=== PATIENT | male | born 1955 | race Hispanic/Latino ===

== ENCOUNTER 2021-12-30 16:15 | Outpatient (CLI) | payer BC | END 2021-12-30 16:16 | disposition home or self-care (01) | LOC: CT 16:15 | PROVIDERS: ATTEND Internal Medicine | DX: R51.9 Headache, unspecified (principal) | CPT/HCPCS: 70470; 82565 ==

== ENCOUNTER 2022-04-19 09:24 | Day surgery (SDC) | payer BC ==
[2022-04-19 10:06] LABS: #Lymphocytes 0.8 thou/uL (1.20-3.40); #Monocytes 0.7 thou/uL (0.11-0.59); #Neutrophils 4.9 thou/uL (1.40-6.50); %Basophils 0.2 % (0.0-1.0); %Eosinophils 0.4 % (0.0-10.0); %Lymphocytes 12.3 % (21.0-51.0); %Monocytes 11.2 % (0.0-10.0); Hemoglobin 15.8 g/dL (14.0-18.0); Mean Corpuscular HGB CONC 33.2 g/dL (32.0-36.0); Mean Corpuscular Hemoglobin 31.7 pg (27.0-31.0); Mean Corpuscular Volume 95.5 fL (78.0-98.0); Mean Platelet Volume 7.7 fL (7.4-10.4); Platelet Count 284 thou/uL (130-400); RBC Distribution Width 13.1 % (11.5-14.5); Red Blood Cell (RBC) Count 4.98 mill/uL (4.70-6.10); White Blood Cell (WBC) Count 6.4 thou/uL (4.8-10.8)
[2022-04-19 10:23] LABS: ALT (SGPT) 18 U/L (8-55); AST (SGOT) 15 U/L (5-34); Albumin 4.2 g/dL (3.4-4.8); Alkaline Phosphatase 88 U/L (40-110); Anion Gap 15 mmol/L (10-20); BUN (Urea Nitrogen) 15 mg/dL (8.4-25.7); Bilirubin, Total 1.1 mg/dL (0.2-1.2); Calc. Creatinine Clearance 0 mL/min (70-130); Calcium 9.1 mg/dL (7.8-10.44); Carbon Dioxide 18 mmol/L (23-31); Chloride 101 mmol/L (98-107); Estimated GFR 57; Globulin 3.5 g/dL (2.4-3.5); Glucose 146 mg/dL (80-115); Lipase 39 U/L (8-78); Magnesium 1.8 mg/dL (1.6-2.6); Potassium 3.8 mmol/L (3.5-5.1); Protein, Total 7.7 g/dL (5.8-8.1); Sodium 130 mmol/L (136-145)
[2022-04-19] MEDS ORDERED: Ondansetron PF 4 MG/2 ML Vial ONE ×2 (11:21→17:49)
[2022-04-19] MEDS ORDERED: Piperacillin/Tazobactam 4.5 GM VIAL ONE (12:18)
[2022-04-19 13:35] LABS: SARS-CoV-2 NAA Rapid Test Not Detected (NotDetected)
[2022-04-19] MEDS ORDERED: fentaNYL Citrate/PF 100 MCG/2 ML SYRINGE ONE (17:24)
[2022-04-19] MEDS ORDERED: PROPOFOL 200 MG/20 ML VIAL ONE (17:49)
[2022-04-19] MEDS ORDERED: Lidocaine 1% PF 5 ML VIAL ONE (17:49)
[2022-04-19] MEDS ORDERED: Glycopyrrolate 0.2 MG/ML 5 ML SYRINGE ONE (17:49)
[2022-04-19] MEDS ORDERED: Dexamethasone 20 MG/5 ML VIAL ONE (17:49)
[2022-04-19] MEDS ORDERED: Phenylephrine 10 MG/ML VIAL ONE (17:49)
[2022-04-19] MEDS ORDERED: Rocuronium Bromide 10 MG/ML (10ML VIAL) ONE (17:49)
[2022-04-19] MEDS ORDERED: SUGAMMADEX SODIUM 200 MG/2 ML VIAL ONE (18:41)
[2022-04-19] MEDS ORDERED: Fentanyl 100 MCG/2 ML VIAL ONE (19:00)
[2022-04-19] MEDS ORDERED: Ketorolac Tromethamine 30 MG/ML VIAL IVP PRN (19:05)
[2022-04-19] MEDS ORDERED: Promethazine HCl 25 MG/ML VIAL IVPB PRN (19:05)
[2022-04-19] MEDS ORDERED: HYDROmorphone 2 MG/ML VIAL SLOW IVP PRN (19:05)
[2022-04-19] MEDS ORDERED: Ondansetron HCl/PF 4 MG/2 ML Vial IVP PRN (19:05)
[2022-04-19] MEDS ORDERED: Promethazine HCl 25 MG/ML VIAL IM PRN (19:05)
[2022-04-19] MEDS ORDERED: Ketorolac Tromethamine 30 MG/ML VIAL ONE (19:08)
[2022-04-19] MEDS ORDERED: HYDROcodone/Acetaminophen 5/325 mg Tablet ONE (19:30)
== END 2022-04-19 20:00 | disposition home or self-care (01) ==
LOC: ERS 09:24 → SDC/OP 15:49
PROVIDERS: ATTEND Surgery
PROC: 0DTJ4ZZ Resection of Appendix, Percutaneous Endoscopic Approach (ICD-10-PCS; principal; 2022-04-19)
DX: K35.80 Unspecified acute appendicitis (principal); K38.8 Other specified diseases of appendix; K52.9 Noninfective gastroenteritis and colitis, unspecified; I10 Essential (primary) hypertension; E78.5 Hyperlipidemia, unspecified; M10.9 Gout, unspecified; Z79.899 Other long term (current) drug therapy; Z20.822 Contact with and (suspected) exposure to COVID-19
CPT/HCPCS: 36415; 74176; 80053; 83690; 83735; 85025; 88304; 93005; 93010; 96361; 96365; 96375; A4649; J1100; J1885; J2370; J2405; J2543; J2704; J2710; J3010; U0002

== ENCOUNTER 2022-04-27 07:33 | Outpatient (CLI) | payer BC ==
[2022-04-27] MEDS ORDERED: Magnevist 469MG/ML 20 ML VIAL ONE (09:24)
== END 2022-04-27 07:34 | disposition home or self-care (01) ==
LOC: MRI 07:33
PROVIDERS: ATTEND Psychiatry & Neurology Neurology
DX: R47.1 Dysarthria and anarthria (principal); G93.9 Disorder of brain, unspecified
CPT/HCPCS: 70553; A9579

== ENCOUNTER 2022-07-12 09:01 | Emergency (ER) | payer BC ==
[2022-07-12] MEDS ORDERED: Fentanyl 100 MCG/2 ML VIAL ONE (10:19)
[2022-07-12] MEDS ORDERED: Orphenadrine Citrate 60 MG/2 ML VIAL ONE (11:09)
[2022-07-12] MEDS ORDERED: Boostrix 0.5 ML (Tdap) VIAL (>/=7 yrs of age) ONE (11:32)
== END 2022-07-12 12:29 | disposition home or self-care (01) ==
LOC: ERS 09:01
DX: S39.012A Strain of muscle, fascia and tendon of lower back, initial encounter (principal); S60.311A Abrasion of right thumb, initial encounter; S70.311A Abrasion, right thigh, initial encounter; I10 Essential (primary) hypertension; E78.5 Hyperlipidemia, unspecified; Z79.899 Other long term (current) drug therapy; W17.89XA Other fall from one level to another, initial encounter
CPT/HCPCS: 70450; 71045; 72125; 72128; 72131; 72170; 90471; 90715; 93005; 96372; 96374; J2360; J3010

== ENCOUNTER 2023-04-08 12:09 | Outpatient (CLI) | payer MEDICARE, BC | END 2023-04-08 12:10 | disposition home or self-care (01) | LOC: RAD 12:09 | PROVIDERS: ATTEND Internal Medicine | DX: M54.6 Pain in thoracic spine (principal); M47.816 Spondylosis without myelopathy or radiculopathy, lumbar region; M47.817 Spondylosis without myelopathy or radiculopathy, lumbosacral region | CPT/HCPCS: 72072; 72100 ==

== ENCOUNTER 2023-04-08 13:11 | Emergency (ER) | payer MEDICARE, BC ==
[2023-04-08 14:23] LABS: #Basophils 0.1 thou/uL (0.0-0.2); #Eosinphils 0.2 thou/uL (0.0-0.7); #Monocytes 0.6 thou/uL (0.11-0.59); #Neutrophils 5.6 thou/uL (1.40-6.50); %Basophils 0.7 % (0.0-1.0); %Eosinophils 2.4 % (0.0-10.0); %Lymphocytes 14.7 % (21.0-51.0); %Monocytes 7.6 % (0.0-10.0); %Neutrophils 74.2 % (42.0-75.0); Hemoglobin 13.9 g/dL (14.0-18.0); Mean Corpuscular HGB CONC 34.8 g/dL (32.0-36.0); Mean Corpuscular Hemoglobin 31.4 pg (27.0-31.0); Mean Corpuscular Volume 90.1 fl (78.0-98.0); Mean Platelet Volume 10.6 fL (7.4-10.4); Platelet Count 230 10x3/uL (130-400); RBC Distribution Width 13.9 % (11.5-14.5); Red Blood Cell (RBC) Count 4.43 mill/uL (4.70-6.10); White Blood Cell (WBC) Count 7.5 10x3/uL (4.8-10.8)
[2023-04-08 14:47] LABS: Anion Gap 15 mmol/L (10-20); BUN (Urea Nitrogen) 21 mg/dL (8.4-25.7); Calc. Creatinine Clearance 0 mL/min (70-130); Carbon Dioxide 21 mmol/L (23-31); Chloride 105 mmol/L (98-107); Potassium 4.3 mmol/L (3.5-5.1); Sodium 137 mmol/L (136-145)
[2023-04-08 14:48] LABS: ALT (SGPT) 25 U/L (8-55); AST (SGOT) 18 U/L (5-34); Albumin 4.4 g/dL (3.4-4.8); Alkaline Phosphatase 82 U/L (40-110); Bilirubin, Total 0.8 mg/dL (0.2-1.2); Calcium 8.7 mg/dL (7.8-10.44); Estimated GFR 58; Globulin 2.9 g/dL (2.4-3.5); Glucose 122 mg/dL (80-115); Protein, Total 7.3 g/dL (5.8-8.1)
[2023-04-08 16:30] LABS: Bacteria/HPF None Seen HPF (None Seen); Bilirubin Negative (Negative); Blood, Urine Negative (Negative); CAUTI Indications for Culture Alt mental st,lethar; Clarity Clear (Clear); Glucose, Urine (Dipstick) Normal (Negative); Ketone, Urine Negative (Negative); Leukocyte Negative Leu/uL (Negative); Nitrite Negative (Negative); Protein, Urine (Dipstick) 10 mg/dL (Neg-Trace); RBC/HPF 0-3 HPF (0-3); Squamous Epithelial None Seen HPF (0-3); Urobilinogen Normal mg/dL (Less than 2); WBC/HPF 0-3 HPF (0-3)
[2023-04-08 16:33] LABS: Urine Culture Reflex No No
== END 2023-04-08 16:44 | disposition home or self-care (01) ==
LOC: ERS 13:11
DX: M54.6 Pain in thoracic spine (principal); E78.5 Hyperlipidemia, unspecified; I10 Essential (primary) hypertension; Z79.899 Other long term (current) drug therapy
CPT/HCPCS: 36415; 71045; 72072; 72100; 80053; 81001; 83605; 83690; 83880; 84484; 85025; 93005; 94760; 96360; 96361

== ENCOUNTER 2023-04-22 12:53 | Outpatient (CLI) | payer MEDICARE, BC | END 2023-04-22 12:54 | disposition home or self-care (01) | LOC: MRI 12:53 | PROVIDERS: ATTEND Internal Medicine | DX: M51.16 Intervertebral disc disorders with radiculopathy, lumbar region (principal); M54.50 Low back pain, unspecified | CPT/HCPCS: 72148 ==

== ENCOUNTER 2023-05-03 11:39 | Outpatient (CLI) | payer MEDICARE, BC | END 2023-05-03 11:40 | disposition home or self-care (01) | LOC: ULT 11:39 | PROVIDERS: ATTEND Internal Medicine | DX: R10.13 Epigastric pain (principal); N28.1 Cyst of kidney, acquired | CPT/HCPCS: 76700 ==

== ENCOUNTER 2023-06-29 12:46 | Outpatient (CLI) | payer BC, MEDICARE | END 2023-06-29 12:47 | disposition home or self-care (01) | LOC: MRI 12:46 | PROVIDERS: ATTEND Physical Medicine & Rehabilitation | DX: M54.6 Pain in thoracic spine (principal); G95.19 Other vascular myelopathies | CPT/HCPCS: 72146 ==

== ENCOUNTER 2023-08-04 22:13 | Observation (INO) | payer BC, MEDICARE ==
[2023-08-04 23:59] LABS: #Basophils 0.1 thou/uL (0.0-0.2); #Monocytes 0.3 thou/uL (0.11-0.59); #Neutrophils 6.6 thou/uL (1.40-6.50); %Basophils 0.8 % (0.0-1.0); %Eosinophils 0.4 % (0.0-10.0); %Monocytes 3.6 % (0.0-10.0); %Neutrophils 84.9 % (42.0-75.0); Hematocrit 40.1 % (42.0-52.0); Hemoglobin 13.7 g/dL (14.0-18.0); Mean Corpuscular HGB CONC 34.2 g/dL (32.0-36.0); Mean Corpuscular Hemoglobin 31.9 pg (27.0-31.0); Mean Corpuscular Volume 93.3 fl (78.0-98.0); Mean Platelet Volume 10.4 fL (7.4-10.4); Platelet Count 284 10x3/uL (130-400); White Blood Cell (WBC) Count 7.8 10x3/uL (4.8-10.8)
[2023-08-05] MEDS ORDERED: Ondansetron PF 4 MG/2 ML Vial ONE (00:15)
[2023-08-05] MEDS ORDERED: Meclizine HCl 25 MG TAB ONE (00:15)
[2023-08-05 00:21] LABS: ALT (SGPT) 27 U/L (8-55); AST (SGOT) 19 U/L (5-34); Albumin 4.9 g/dL (3.4-4.8); Alkaline Phosphatase 90 U/L (40-110); Anion Gap 19 mmol/L (10-20); BUN (Urea Nitrogen) 19 mg/dL (8.4-25.7); Bilirubin, Total 0.7 mg/dL (0.2-1.2); Calc. Creatinine Clearance 0 mL/min (70-130); Calcium 8.7 mg/dL (7.8-10.44); Carbon Dioxide 17 mmol/L (23-31); Chloride 104 mmol/L (98-107); Estimated GFR 49; Globulin 2.9 g/dL (2.4-3.5); Glucose 198 mg/dL (80-115); Potassium 4.2 mmol/L (3.5-5.1); Protein, Total 7.8 g/dL (5.8-8.1); Sodium 136 mmol/L (136-145)
[2023-08-05 00:53] LABS: Troponin I Less than 0.010 ng/mL (< 0.028)
[2023-08-05] MEDS ORDERED: Aspirin Chewable 81 MG TAB ONE (01:51)
[2023-08-05] MEDS ORDERED: Labetalol HCl 100 MG/20 ML VIAL SLOW IVP PRN (02:15)
[2023-08-05] MEDS ORDERED: Acetaminophen 325 MG TAB PO PRN (02:15)
[2023-08-05] MEDS ORDERED: Ondansetron PF 4 MG/2 ML Vial IVP PRN (02:15)
[2023-08-05] MEDS ORDERED: Sodium Chloride 0.9% 1,000 ML IV SCH (02:15)
[2023-08-05] MEDS ORDERED: hydrALAZINE 20 MG/ML VIAL SLOW IVP PRN (02:15)
[2023-08-05] MEDS ORDERED: Meclizine HCl 25 MG TAB PO PRN (02:20)
[2023-08-05 05:16] LABS: #Monocytes 0.4 thou/uL (0.11-0.59); #Neutrophils 5.7 thou/uL (1.40-6.50); %Basophils 0.6 % (0.0-1.0); %Eosinophils 0.1 % (0.0-10.0); %Monocytes 6.1 % (0.0-10.0); %Neutrophils 80.9 % (42.0-75.0); Hematocrit 38.5 % (42.0-52.0); Hemoglobin 13.3 g/dL (14.0-18.0); Mean Corpuscular HGB CONC 34.5 g/dL (32.0-36.0); Mean Corpuscular Hemoglobin 31.6 pg (27.0-31.0); Mean Corpuscular Volume 91.4 fl (78.0-98.0); Mean Platelet Volume 10.3 fL (7.4-10.4); Platelet Count 278 10x3/uL (130-400); RBC Distribution Width 13.1 % (11.5-14.5); Red Blood Cell (RBC) Count 4.21 mill/uL (4.70-6.10); White Blood Cell (WBC) Count 7.1 10x3/uL (4.8-10.8)
[2023-08-05 05:33] LABS: Hemoglobin A1c 6.5 % (4.0-6.0)
[2023-08-05 05:43] LABS: Anion Gap 14 mmol/L (10-20); BUN (Urea Nitrogen) 18 mg/dL (8.4-25.7); Calc. Creatinine Clearance 0 mL/min (70-130); Calcium 9.3 mg/dL (7.8-10.44); Carbon Dioxide 22 mmol/L (23-31); Cardiac Risk 3.9 (Less than 4.5); Chloride 104 mmol/L (98-107); Cholesterol 132 mg/dl (< 200 Desired); Estimated GFR 59; Glucose 135 mg/dL (80-115); HDL Cholesterol 34 mg/dL (>60 Neg Risk); LDL Cholesterol, Calculated 74 mg/dL; Potassium 4.3 mmol/L (3.5-5.1); Sodium 136 mmol/L (136-145); Triglycerides 119 mg/dL (Less than 150)
[2023-08-05 09:02] VITALS: TEMP 98.4
[2023-08-05 09:06] VITALS: BMI 34.2
[2023-08-05 13:11] VITALS: BP 131/77
[2023-08-05 13:35] LABS: Bacteria/HPF None Seen HPF (None Seen); Bilirubin Negative (Negative); Blood, Urine Negative (Negative); CAUTI Indications for Culture Dysuria,urgency,freq; Clarity Clear (Clear); Glucose, Urine (Dipstick) 30 mg/dL (Negative); Ketone, Urine Negative (Negative); Leukocyte Negative Leu/uL (Negative); Nitrite Negative (Negative); Protein, Urine (Dipstick) 10 mg/dL (Neg-Trace); RBC/HPF 0-3 HPF (0-3); Specific Gravity, Urine 1.013 (1.002-1.036); Squamous Epithelial None Seen HPF (0-3); Urobilinogen Normal mg/dL (Less than 2); WBC/HPF 0-3 HPF (0-3)
[2023-08-05 13:36] LABS: Urine Culture Reflex No No
[2023-08-05] MEDS ORDERED: Atorvastatin Calcium 40 MG TAB PO SCH (21:00)
[2023-08-06] MEDS ORDERED: Citalopram 20 MG TAB PO SCH (09:00)
== END 2023-08-05 14:50 | disposition home or self-care (01) ==
LOC: ERS 22:13 → ERHOLD 08-05 01:59
PROVIDERS: ADMIT Internal Medicine; ATTEND Internal Medicine
DX: H81.10 Benign paroxysmal vertigo, unspecified ear (principal); I12.9 Hypertensive chronic kidney disease with stage 1 through stage 4 chronic kidney disease, or unspecified chronic kidney disease; N18.30 Chronic kidney disease, stage 3 unspecified; N17.9 Acute kidney failure, unspecified; E11.9 Type 2 diabetes mellitus without complications; E78.5 Hyperlipidemia, unspecified; Z79.899 Other long term (current) drug therapy; Z90.49 Acquired absence of other specified parts of digestive tract
CPT/HCPCS: 36415; 70450; 70551; 80048; 80053; 80061; 81001; 83036; 84484; 85025; 93005; 93880; 96374; G0378; J2405; J7050

== ENCOUNTER 2023-11-02 13:56 | Outpatient (CLI) | payer BC, MEDICARE ==
[~2023-11-02 13:56] MED LIST: Iopamidol 370 76% 100 ML VIAL ONE
== END 2023-11-02 13:57 | disposition home or self-care (01) ==
LOC: BICCT 13:56
PROVIDERS: ATTEND Student in an Organized Health Care Education/Training Program
DX: I65.29 Occlusion and stenosis of unspecified carotid artery (principal)
CPT/HCPCS: 70498; Q9967

== ENCOUNTER 2024-02-29 15:55 | Emergency (ER) | payer BC, MEDICARE ==
[~2024-02-29 15:55] MED LIST changes: -Iopamidol 370 76% 100 ML VIAL ONE; +Iopamidol-370 76% 500 ML MDV (1 ML CHARGE) ONE
[2024-02-29 16:59] LABS: #Basophils 0.03 10x3/uL (0.0-0.2); %Basophils 0.4 % (0.0-1.0); %Eosinophils 1.9 % (0.0-10.0); %Lymphocytes 11.8 % (21.0-51.0); %Monocytes 7.6 % (0.0-10.0); Hematocrit 43.9 % (42.0-52.0); Hemoglobin 14.8 g/dL (14.0-18.0); Mean Corpuscular HGB CONC 33.7 g/dL (32.0-36.0); Mean Corpuscular Hemoglobin 30.8 pg (27.0-31.0); Mean Corpuscular Volume 91.3 fL (78.0-98.0); Mean Platelet Volume 10.1 fL (7.4-10.4); Platelet Count 246 10x3/uL (130-400); RBC Distribution Width 14.4 % (11.5-14.5); Red Blood Cell (RBC) Count 4.81 mill/uL (4.70-6.10)
[2024-02-29 17:18] LABS: ALT (SGPT) 43 U/L (8-55); AST (SGOT) 31 U/L (5-34); Albumin 3.6 g/dL (3.4-4.8); Alkaline Phosphatase 114 U/L (40-110); Anion Gap 15 mmol/L (10-20); BUN (Urea Nitrogen) 19 mg/dL (8.4-25.7); Bilirubin, Total 0.7 mg/dL (0.2-1.2); Calc. Creatinine Clearance 0 mL/min (70-130); Calcium 8.8 mg/dL (7.8-10.44); Carbon Dioxide 21 mmol/L (23-31); Chloride 105 mmol/L (98-107); Estimated GFR 73; Globulin 3.4 g/dL (2.4-3.5); Glucose 183 mg/dL (80-115); Lipase 20 U/L (8-78); Potassium 4.4 mmol/L (3.5-5.1); Sodium 137 mmol/L (136-145)
[2024-02-29 17:22] LABS: Troponin I 0.012 ng/mL (< 0.028)
[2024-02-29 18:35] LABS: INR-International Normal Ratio 1.1; PTT 30.7 sec (22.9-36.1); Prothrombin Time 13.9 sec (12.0-14.7)
== END 2024-02-29 19:03 | disposition home or self-care (01) ==
LOC: ERS 15:55
DX: R06.02 Shortness of breath (principal); I10 Essential (primary) hypertension; I25.2 Old myocardial infarction; E11.9 Type 2 diabetes mellitus without complications; E78.5 Hyperlipidemia, unspecified; M10.9 Gout, unspecified; Z79.899 Other long term (current) drug therapy
CPT/HCPCS: 36416; 71045; 71275; 80053; 83690; 83735; 83880; 84443; 84484; 85025; 85610; 85730; 93005; Q9967

== ENCOUNTER 2024-07-12 13:57 | Outpatient (CLI) | payer BC, MEDICARE ==
[2024-07-12 15:16] LABS: #Basophils 0.05 10x3/uL (0.0-0.2); %Basophils 0.8 % (0.0-1.0); %Eosinophils 2.9 % (0.0-10.0); %Lymphocytes 20.7 % (21.0-51.0); %Monocytes 6.5 % (0.0-10.0); %Neutrophils 68.9 % (42.0-75.0); Hemoglobin 15.7 g/dL (14.0-18.0); Mean Corpuscular Hemoglobin 29.9 pg (27.0-31.0); Mean Corpuscular Volume 93.3 fL (78.0-98.0); Mean Platelet Volume 10.2 fL (7.4-10.4); Platelet Count 256 10x3/uL (130-400); RBC Distribution Width 14.8 % (11.5-14.5); Red Blood Cell (RBC) Count 5.25 mill/uL (4.70-6.10)
[2024-07-12 15:30] LABS: Prothrombin Time 12.9 sec (12.0-14.7)
[2024-07-12 16:03] LABS: Anion Gap 11 mmol/L (10-20); BUN (Urea Nitrogen) 12 mg/dL (8.4-25.7); Calc. Creatinine Clearance 0 mL/min (70-130); Carbon Dioxide 26 mmol/L (23-31); Chloride 106 mmol/L (98-107); Estimated GFR 85; Glucose 135 mg/dL (80-115); Potassium 4.4 mmol/L (3.5-5.1); Sodium 139 mmol/L (136-145)
== END 2024-07-12 13:58 | disposition home or self-care (01) ==
LOC: LABBT 13:57
PROVIDERS: ATTEND Orthopaedic Surgery
DX: Z01.818 Encounter for other preprocedural examination (principal); M19.012 Primary osteoarthritis, left shoulder
CPT/HCPCS: 80048; 85025; 85610; 87081; 93005; 93010

== ENCOUNTER 2024-07-19 05:26 | Observation (INO) | payer BC, MEDICARE ==
[2024-07-12 14:20] VITALS: BMI 36.5
[2024-07-19] MEDS ORDERED: Sodium Chloride 0.9% 100 ML ONE (06:07)
[2024-07-19] MEDS ORDERED: Tranexamic Acid 1,000 MG/10 ML VIAL ONE (06:07)
[2024-07-19] MEDS ORDERED: Vancomycin (BATCH) 1.5 GM/300 ML BAG ONE (06:07)
[2024-07-19] MEDS ORDERED: fentaNYL 50 mcg/mL 1 mL Vial ONE (06:41)
[2024-07-19] MEDS ORDERED: Midazolam HCl 2 mg/2 ml Vial ONE (06:42)
[2024-07-19] MEDS ORDERED: CEFAZOLIN 2 GM VIAL ONE (06:55)
[2024-07-19] MEDS ORDERED: Rocuronium Bromide 10 MG/ML (10ML VIAL) ONE (06:59)
[2024-07-19] MEDS ORDERED: Lidocaine 1% PF 5 ML VIAL ONE (06:59)
[2024-07-19] MEDS ORDERED: Phenylephrine 10 MG/ML VIAL ONE (06:59)
[2024-07-19] MEDS ORDERED: fentaNYL PF 100 MCG/2 ML SYRINGE ONE (07:00)
[2024-07-19] MEDS ORDERED: PROPOFOL 20 ML ONE (07:00)
[2024-07-19] MEDS ORDERED: Ondansetron PF 4 MG/2 ML Vial ONE (07:00)
[2024-07-19] MEDS ORDERED: Dexamethasone 20 MG/5 ML VIAL ONE (07:44)
[2024-07-19] MEDS ORDERED: traMADol HCl 50 MG TAB PO PRN ×2 (07:45)
[2024-07-19] MEDS ORDERED: Zolpidem Tartrate 5 MG TAB PO PRN ×2 (07:45→10:17)
[2024-07-19] MEDS ORDERED: Ropivacaine 0.2% 550 ML 550 ML NERVE BLCK SCH (07:45)
[2024-07-19] MEDS ORDERED: Ondansetron PF 4 MG/2 ML Vial IVP PRN ×2 (07:45→10:17)
[2024-07-19] MEDS ORDERED: fentaNYL 50 mcg/mL 1 mL Vial SLOW IVP PRN (07:45)
[2024-07-19] MEDS ORDERED: HYDROcodone/Acetaminophen 10/325 mg Tablet PO PRN ×2 (07:45)
[2024-07-19] MEDS ORDERED: Promethazine HCl 25 MG/ML VIAL IM PRN (07:45)
[2024-07-19] MEDS ORDERED: SUGAMMADEX SODIUM 200 MG/2 ML VIAL ONE (07:48)
[2024-07-19] MEDS ORDERED: ePHEDrine Sulfate 50 MG/10 ML VIAL ONE (08:48)
[2024-07-19] MEDS ORDERED: Ketorolac Tromethamine 30 MG (1 mL) VIAL ONE (09:40)
[2024-07-19] MEDS ORDERED: Ondansetron ODT 4 MG TAB PO PRN (10:17)
[2024-07-19] MEDS ORDERED: diphenhydrAMINE 50 MG CAP PO PRN (10:17)
[2024-07-19] MEDS ORDERED: Methocarbamol 500 MG TAB PO PRN (10:17)
[2024-07-19] MEDS ORDERED: Methocarbamol 1 GM (10 mL) VIAL SLOW IVP PRN (10:17)
[2024-07-19] MEDS ORDERED: Milk Of Magnesia 30 ML UDCUP PO PRN (10:17)
[2024-07-19] MEDS ORDERED: Acetaminophen 325 MG TAB PO PRN (10:17)
[2024-07-19] MEDS ORDERED: Bisacodyl 10 MG SUPP PR PRN (10:17)
[2024-07-19] MEDS: Ketorolac Tromethamine 30 MG (1 mL) VIAL IVP SCH (11:52)
[2024-07-19] MEDS: Sodium Chloride 0.9% 1,000 ML IV SCH (11:52)
[2024-07-19] MEDS ORDERED: Lidocaine 1% (PF) 30 ML VIAL ONE (11:53)
[2024-07-19] MEDS ORDERED: Ropivacaine 0.2% HCl/PF 20 ML ONE (11:53)
[2024-07-19] MEDS ORDERED: Ropivacaine 0.5% HCl/PF (150 MG/30 ML VIAL) ONE (11:53)
[2024-07-19] MEDS: Loratadine 10 MG TAB PO PRN (14:08)
[2024-07-19] MEDS: CEFAZOLIN 2 GM in Sodium Chloride 0.9% 100 ML IVPB SCH (14:11)
[2024-07-19] MEDS: Vancomycin (BATCH) 1.5 GM in Premix 1 BAG IVPB SCH (18:02)
[2024-07-20] MEDS: Citalopram 20 MG TAB PO SCH (09:20)
[2024-07-20] MEDS: Tamsulosin HCl 0.4 MG CAP PO SCH (09:21)
[2024-07-20] MEDS: Metoprolol Tartrate 50 MG TAB PO SCH (09:21)
[2024-07-20] MEDS: Spironolactone 25 MG TAB PO SCH (09:21)
[2024-07-20] MEDS: ALPRAZolam 0.5 MG TAB PO PRN (10:54)
[2024-07-20 11:28] VITALS: TEMP 98.2
[2024-07-20] MEDS: FLU (Fluad Triv) TS24-25 (65UP)/MF59C/PF 45 MCG/0.5 ML Syringe IM ONE (13:07)
[2024-07-20] MEDS ORDERED: NIFEdipine 10 MG CAP PO SCH (14:15)
[2024-07-20] MEDS: hydrALAZINE 25 MG TAB PO SCH (14:23)
[2024-07-20 15:00] VITALS: BP 152/88
[2024-07-20] MEDS ORDERED: Spironolactone 25 MG TAB PO SCH (17:00)
[2024-07-20] MEDS ORDERED: Atorvastatin Calcium 40 MG TAB PO SCH (21:00)
== END 2024-07-20 15:06 | disposition home or self-care (01) ==
LOC: SDC 05:26 → SURG B 11:38
PROVIDERS: ADMIT Orthopaedic Surgery; ATTEND Orthopaedic Surgery
PROC: 0RRK0JZ Replacement of Left Shoulder Joint with Synthetic Substitute, Open Approach (ICD-10-PCS; principal; 2024-07-19)
PROC: 3E0T3BZ Introduction of Anesthetic Agent into Peripheral Nerves and Plexi, Percutaneous Approach (ICD-10-PCS; 2024-07-19)
DX: M19.012 Primary osteoarthritis, left shoulder (principal); M75.22 Bicipital tendinitis, left shoulder; I10 Essential (primary) hypertension; J30.2 Other seasonal allergic rhinitis; E78.5 Hyperlipidemia, unspecified; M10.9 Gout, unspecified; F41.9 Anxiety disorder, unspecified; F32.A Depression, unspecified; E11.9 Type 2 diabetes mellitus without complications; M19.90 Unspecified osteoarthritis, unspecified site; Z79.899 Other long term (current) drug therapy
CPT/HCPCS: A4306; C1713; C1776; J1100; J1885; J2250; J2371; J2405; J2704; J2795; J3010; J3370; J7030